=== PATIENT | female | born 1995 | race Caucasian/White ===

== ENCOUNTER 2022-09-23 10:53 | Emergency (ER) | payer OTHER ==
[2022-09-23 11:37] LABS: BASOPHILS % (AUTO) 0.3 %; EOSINOPHILS # (AUTO) 0.2 10^3/uL (0.0-0.7); HCT - HEMATOCRIT 40.6 % (37.0-47.0); LYMPHOCYTES # (AUTO) 1.9 10^3/uL (1.5-3.5); LYMPHOCYTES % (AUTO) 24.2 %; MEAN CORPUSCULAR HEMOGLOBIN 26.3 pg (27.0-31.0); MEAN PLATELET VOLUME 9.8 fL (7.9-10.8); MONOCYTES # (AUTO) 0.4 10^3/uL (0.0-1.0); MONOCYTES % (AUTO) 5.4 %; NEUTROPHILS # (AUTO) 5.3 10^3/uL (1.5-6.6); NEUTROPHILS % (AUTO) 67.7 %; PLT - PLATELET COUNT 231 10^3/uL (130-450); RED BLOOD COUNT 4.95 10^6/uL (4.20-5.40); RED CELL DISTRIBUTION WIDTH 12.9 % (12.0-15.0); WHITE BLOOD COUNT 7.9 x10^3/uL (4.8-10.8)
[2022-09-23 11:50] LABS: ALBUMIN 4.1 g/dL (3.2-5.5); ALBUMIN/GLOBULIN RATIO 1.3 (1.0-2.2); BILIRUBIN,TOTAL 0.5 mg/dL (0.2-1.0); CALCIUM 9.1 mg/dL (8.5-10.3); CREATININE 0.7 mg/dL (0.4-1.0); POTASSIUM 3.9 mmol/L (3.5-5.0); TOTAL PROTEIN 7.2 g/dL (6.7-8.2)
--- NOTE | 2022-09-23 13:14 | ED Physician Documentation ---
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 denies: Vomiting, Diarrhea : reports: Vaginal bleeding (just current last night). denies: Dysuria, Frequency Skin: denies: Rash, Lesions Neurologic: denies: Generalized weakness, Near syncope PD PAST MEDICAL HISTORY - Past Medical History Past Medical History: No Cardiovascular: None Respiratory: None Neuro: None Endocrine/Autoimmune: None GI: None TWITCHELL OPERATOR: Miscarriage(s) : None HEENT: None Psych: None Musculoskeletal: None Derm: None - Past Surgical History Past Surgical History: No - Present Medications Home Medications: Ambulatory Orders Medication Instructions Recorded Confirmed No Known Home Medications 09/23/22 09/23/22 - Allergies Allergies/Adverse Reactions: Allergies Allergy/AdvReac Type Severity Reaction Status Date / Time No Known Drug Allergies Allergy Verified 09/23/22 11:18 - Social History Does the pt smoke?: No Smoking Status: Former smoker Does the pt drink ETOH?: No Does the pt have substance abuse?: No - POLST Patient has POLST: No PD ED PE NORMAL - Vitals Vital signs reviewed: Yes - General General: Alert and oriented X 3, No acute distress, Well developed/nourished - Female Female : Deferred - Back Back: No CVA TTP, No spinal TTP - Derm Derm: Normal color, Warm and dry - Neuro Neuro: Alert and oriented X 3, No motor deficit, Normal speech Results - Vitals Vitals: Vital Signs - 24 hr 09/23/22 09/23/22 11:11 13:16 Temperature 37.2 C 36.4 C L Heart Rate 79 96 Respiratory 16 18 Rate Blood Pressure 111/64 116/73 O2 Saturation 99 100 Oxygen O2 Source Room air - Labs Labs: Laboratory Tests 09/23/22 09/23/22 09/23/22 11:28 11:28 11:28 WBC RBC Hgb Hct MCV MCH MCHC RDW Plt Count MPV Neut # (Auto) Lymph # (Auto) Esmeralda # (Auto) Eos # (Auto) Baso # (Auto) Absolute Nucleated RBC Nucleated RBC % Sodium 138 Potassium 3.9 Chloride 106 Carbon Dioxide 25 Anion Gap 7.0 BUN 12 Creatinine 0.7 Estimated GFR (MDRD) 99 Glucose 147 H Calcium 9.1 Total Bilirubin 0.5 AST 15 ALT 19 Alkaline Phosphatase 59 Total Protein 7.2 Albumin 4.1 Globulin 3.1 Albumin/Globulin Ratio 1.3 Lipase 31 HCG, Quant 6348.00 Urine Color Urine Clarity Urine pH Ur Specific [place] Urine Protein Urine Glucose (UA) Urine Ketones Urine Occult Blood Urine Nitrite Urine Bilirubin Urine Urobilinogen Ur Leukocyte Esterase Urine RBC Urine WBC Ur Squamous Epith Cells Urine Bacteria Ur Microscopic Review Urine Culture Comments Blood Type A POSITIVE Blood Type Recheck 09/23/22 09/23/22 09/23/22 11:32 11:32 12:52 WBC 7.9 RBC 4.95 Hgb 13.0 Hct 40.6 MCV 82.0 MCH 26.3 L MCHC 32.0 RDW 12.9 Plt Count 231 MPV 9.8 Neut # (Auto) 5.3 Lymph # (Auto) 1.9 Esmeralda # (Auto) 0.4 Eos # (Auto) 0.2 Baso # (Auto) 0.0 Absolute Nucleated RBC 0.00 Nucleated RBC % 0.0 Sodium Potassium Chloride Carbon Dioxide Anion Gap BUN Creatinine Estimated GFR (MDRD) Glucose Calcium Total Bilirubin AST ALT Alkaline Phosphatase Total Protein Albumin Globulin Albumin/Globulin Ratio Lipase HCG, Quant Urine Color BROWN Urine Clarity CLOUDY Urine pH 6.0 Ur Specific [place] >=1.030 H Urine Protein 100 H Urine Glucose (UA) NEGATIVE Urine Ketones NEGATIVE Urine Occult Blood LARGE H Urine Nitrite POSITIVE H Urine Bilirubin NEGATIVE Urine Urobilinogen 1 (NORMAL) Ur Leukocyte Esterase SMALL H Urine RBC TNTC H Urine WBC 11-25 H Ur Squamous Epith Cells MANY Squamous H Urine Bacteria Moderate H Ur Microscopic Review INDICATED Urine Culture Comments NOT INDICATED Blood Type Blood Type Recheck A POSITIVE - Rads (name of study) OB U/S Radiology: See rad report, Other (report from U/S tech - no IUP. Small CL cyst on left. Mild free fluid. No signs of adnexal masses. ) PD MEDICAL DECISION MAKING - ED course Complexity details: reviewed results (no IUP but also no adnexal abn with left corpus luteal cyst and mild free fluid in pelvis. ), re-evaluated patient (most likely miscarriage in progress/complete with no IUP seen. Will need close f/u in 3 days with repeat quant and exam to ensure is miscarriage and not early ectopic/etc. ), considered differential ( of unknown dates (LMP [place] but patient not feeling 14 weeks ). Has cramps and passed clots. Concern for miscarriage versus viable IUP, but also concern for ectopic. ), d/w direct sales consultant (I talked with Dr. San who is on-call for PRETZEL COOKER. She agrees with discharge with likely miscarriage but to get a repeat hCG serum level in 3 days and follow-up vasu Herrera. Due to her [employer] insurance, she would not be able to be seen women's health clinic, but she should f/u [facility]. ) ED course: gave patient Rx for blood test in 3 days quant HCG with results to [facility] clinic. Departure - Departure Disposition: 01 Home, Self Care Clinical Impression: Vaginal bleeding, Miscarriage Qualifiers: Weeks of gestation: unspecified Qualified Code(s): Z34.90 - Encounter for supervision of normal , unspecified, unspecified trimester Condition: Stable Record reviewed to determine appropriate education?: Yes Instructions: ED Miscarriage Completed Follow-Up: [facility] [Provider Group] Comments: Your ultrasound does not show an intrauterine . There is no abnormalities in the tubes or pelvis this seen either. Your test on blood was positive to the level where we would expect to see your on ultrasound. The conclusion therefore seems to be a miscarriage. We typically will try to follow the blood HCG level over the next week or so to ensure it is going down appropriately and the miscarriage is complete. I talked with our PRETZEL COOKER and she said [place] can do the repeat blood testing and then consult TWITCHELL OPERATOR if needed. Get a blood test on Monday and follow up with providers at [facility]. Ibuprofen 3 times daily with food for the next several days to help with cramps. Add Tylenol if needed. Return if significant increase in bleeding, increase in pain, lightheadedness or fainting, fevers or other concerns. Discharge Date/Time: 09/23/22 13:53
[2022-09-23 13:17] VITALS: BP 116/73
[2022-09-23 13:19] LABS: BILIRUBIN,URINE NEGATIVE (NEGATIVE); GLUCOSE, URINE (UA) NEGATIVE (NEGATIVE); KETONES,URINE (UA) NEGATIVE (NEGATIVE); LEUKOCYTE ESTERASE, URINE SMALL (NEGATIVE); NITRITE,URINE POSITIVE (NEGATIVE); OCCULT BLOOD,URINE LARGE (NEGATIVE); PROTEIN,URINE 100 mg/dL (NEGATIVE); UROBILINOGEN,URINE 1 (NORMAL) E.U./dL (NORMAL)
[2022-09-23 13:20] LABS: CLARITY,URINE CLOUDY (CLEAR)
[2022-09-23 13:36] LABS: BACTERIA,URINE Moderate /HPF (None Seen); RBC,URINE TNTC /HPF (0-5); SQUAMOUS EPITHELIAL CELL,UR MANY Squamous (<= Few)
--- NOTE | 2022-09-23 15:12 | Ultrasound Report ---
PROCEDURE: OB First Trimester w/TV INDICATIONS: early , vag bleeding OUTSIDE/PRIOR DATING DATA: Last menstrual period (LMP): 06/15/2022. LMP-based estimated date of delivery (KOBE): 03/22/2023. First dating scan (date and location): Current study, 09/23/2022. Estimated date of delivery (KOBE) from first dating scan: Not applicable. TECHNIQUE: Real-time scanning was performed of the fetus and maternal pelvic organs, with image documentation. Endovaginal scanning was also performed to better visualize the fetus and maternal ovaries. COMPARISON: None FINDINGS: Embryo: No evidence of intrauterine . Maternal organs: Retroverted uterus demonstrates thickened fundal endometrial stripe measuring 24 mm. The endometrium is heterogeneous and filled with echogenic and cystic material.. No discrete fluid c ollection to suggest gestational sac. The cervix appears grossly closed. The right ovary has a normal follicular echotexture and vascular flow. The left ovary also has normal follicles and contains a 2.0 cm corpus luteum. No free fluid or suspicious adnexal mass. IMPRESSION: 1. No evidence of intrauterine . This may indicate early , failed , less l ikely ectopic . 2. Continued follow-up with serial beta hCG levels is recommended. 3. Left ovarian corpus luteum or dominant follicle. 4. Preliminary results given by the clinical athletic instructor to the ordering provider immediately following the st udy. Reviewed by: Marta Elias MD on 09/23/2022 2:11 PM ADEN Approved by: Marta Elias MD on 09/23/2022 2:11 PM AKDT Station ID: [id number]
== END 2022-09-23 13:53 | disposition home or self-care (01) ==
LOC: ED 10:53
DX: O03.9 Complete or unspecified spontaneous abortion without complication (principal); Z87.891 Personal history of nicotine dependence
CPT/HCPCS: 36415; 80053; 81001; 81003; 83690; 84702; 85025; 86900; 86901; 87086; 99282; 99284

== ENCOUNTER 2023-08-06 14:36 | Outpatient (CLI) | payer OTHER | END 2023-08-06 23:59 | disposition EMS.NT | LOC: EMS 14:36 | DX: O9A.312 Physical abuse complicating pregnancy, second trimester (principal); R51.9 Headache, unspecified ==